=== PATIENT | female | born 2005 | race Caucasian/White ===

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

== ENCOUNTER 2024-02-02 14:38 | Emergency (ER) | payer OTHER ==
[~2024-02-02] VITALS: Ht 160 cm; Wt 69.4 kg
[~2024-02-02 14:38] MED LIST changes: -ACET-8386 PO; +ACET-8905 PO; +ONDA-188 PO
[2024-02-02 15:31] VITALS: BP 127/81; PULSE 79; RESP 16; TEMP 98.6; O2SAT 99
[2024-02-02] MEDS: ACETAMINOPHEN 325 MG TAB PO ONE (16:36)
[2024-02-02] MEDS ORDERED: ONDA-188 SL (17:23)
[2024-02-02 17:48] VITALS: BP 122/82; PULSE 78; RESP 12; TEMP 98; O2SAT 100
== END 2024-02-02 17:48 | disposition home or self-care (01) ==
LOC: MED 14:38
DX: S60.222A Contusion of left hand, initial encounter (principal); S80.02XA Contusion of left knee, initial encounter; S50.12XA Contusion of left forearm, initial encounter; S09.90XA Unspecified injury of head, initial encounter; R11.2 Nausea with vomiting, unspecified; J45.909 Unspecified asthma, uncomplicated; Z79.899 Other long term (current) drug therapy; Z88.8 Allergy status to other drugs, medicaments and biological substances; Y04.0XXA Assault by unarmed brawl or fight, initial encounter; Y92.89 Other specified places as the place of occurrence of the external cause; Y93.89 Activity, other specified; Y99.8 Other external cause status
CPT/HCPCS: 70450; 73090; 73130; 73562; 81025; 99284

== ENCOUNTER 2024-08-17 13:28 | Emergency (ER) | payer OTHER ==
[~2024-08-17] VITALS: Ht 160 cm; Wt 70.8 kg
[~2024-08-17 13:28] MED LIST changes: +NAPR-337 PO; -NAPR-54 PO; +ONDA-188 SL
[2024-08-17 13:39] VITALS: BP 109/62; PULSE 72; RESP 18; TEMP 98.4; O2SAT 99
[2024-08-17] MEDS: KETOROLAC 60 MG/2 ML VIAL IM ONE (14:17)
[2024-08-17 14:36] LABS: APPEARANCE,URINE CLEAR (CLEAR); BILIRUBIN,URINE NEGATIVE (NEGATIVE); BLOOD, URINE NEGATIVE (NEGATIVE); COLOR,URINE YELLOW (YELLOW); LEUKOCYTE ESTERASE ,URINE NEGATIVE (NEGATIVE); NITRITE, URINE NEGATIVE (NEGATIVE); PH,URINE 7.5 (5.0-9.0); PROTEIN,URINE NEGATIVE (NEGATIVE); UGLUCOSE NEGATIVE (NEGATIVE); UROBILINOGEN,URINE 0.2 EU/dL (0.2 - 1)
[2024-08-17] MEDS ORDERED: ACET-8905 PO (14:51)
[2024-08-17 15:15] VITALS: BP 116/41; PULSE 64; RESP 18; TEMP 98.4; O2SAT 99
== END 2024-08-17 15:15 | disposition home or self-care (01) ==
LOC: MED 13:28
DX: R10.30 Lower abdominal pain, unspecified (principal); R11.2 Nausea with vomiting, unspecified; J45.909 Unspecified asthma, uncomplicated; F17.210 Nicotine dependence, cigarettes, uncomplicated; Z79.899 Other long term (current) drug therapy; Z88.8 Allergy status to other drugs, medicaments and biological substances
CPT/HCPCS: 81003; 81025; 96372; 99283; J1885